=== PATIENT | female | born 1985 | race Caucasian/White ===

== ENCOUNTER 2017-10-12 03:32 | Observation (INO) | payer OTHER ==
[~2017-10-12] VITALS: Ht 165.1 cm; Wt 75.1 kg
[2017-10-12 03:34] VITALS: BP 124/81
[2017-10-12] MEDS ORDERED: SODIUM CHLORIDE FLUSH 10ML SYR IVF ONE (04:00)
[2017-10-12] MEDS ORDERED: ONDANSETRON 2MG/ML, 2ML IVPush ONE (04:00)
[2017-10-12] MEDS ORDERED: MORPHINE SULFATE 4 MG/ML, 1ML ONE ×3 (04:11→06:27)
[2017-10-12] MEDS ORDERED: ONDANSETRON 2MG/ML, 2ML ONE ×2 (04:11→07:23)
[2017-10-12 04:20] LABS: BASOPHILS # (AUTO) 0.05 x10^3/uL (0-0.1); BASOPHILS % (AUTO) 0 % (0-1); EOSINOPHILS # (AUTO) 0.23 x10^3/uL (0-0.4); EOSINOPHILS % (AUTO) 2 % (1-7); LYMPHOCYTES # (AUTO) 1.03 x10^3/uL (1-3.4); LYMPHOCYTES % (AUTO) 7 % (22-44); MD NO; MEAN CORPUSCULAR HEMOGLOBIN 24.2 pg (27.0-34.8); MEAN CORPUSCULAR VOLUME 75.8 fL (80-100); MEAN PLATELET VOLUME 9.3 fL (7.4-10.4); MONOCYTES # (AUTO) 0.77 x10^3/uL (0.2-0.8); MONOCYTES % (AUTO) 5 % (2-9); NEUTROPHILS # (AUTO) 12.46 x10^3/uL (1.8-6.8); NEUTROPHILS % (AUTO) 86 % (42-75); PLATELET COUNT 241 x10^3/uL (130-400); RED CELL DISTRIBUTION WIDTH 16.4 % (9.6-15.2)
[2017-10-12 04:30] LABS: ALANINE AMINOTRANSFERASE 15 U/L (12-78); ALBUMIN 3.6 g/dL (3.4-5.0); ANION GAP 8 mmol/L (5-15); CALCIUM 8.3 mg/dL (8.5-10.1); CHLORIDE 112 mmol/L (98-107); CREATININE 0.75 mg/dL (0.55-1.02)
[2017-10-12 04:34] LABS: ALKALINE PHOSPHATASE 49 U/L (45-117); BILIRUBIN,TOTAL 0.3 mg/dL (0.2-1.0); TOTAL PROTEIN 7.4 g/dL (6.4-8.2)
[2017-10-12] MEDS: MORPHINE SULFATE 4 MG/ML, 1ML IVPush PRN ×2 (05:00→05:22)
[2017-10-12 05:04] LABS: MICROSCOPIC INDICATED
[2017-10-12 05:05] LABS: CULTURE INDICATED? YES
[2017-10-12] MEDS ORDERED: CEFOXITIN 2,000 MG in SODIUM CHLORIDE 0.9% 50 ML IV ONE (06:00)
[2017-10-12] MEDS ORDERED: SODIUM CHLORIDE 0.9% 1,000ML IVBOLUS ONE (06:00)
[2017-10-12] MEDS ORDERED: morphine SULFATE 10 MG/ML, 1ML IVPush STA (06:32)
[2017-10-12] MEDS ORDERED: MORPHINE SULFATE 4 MG/ML, 1ML IVPush STA (06:32)
[2017-10-12] MEDS ORDERED: EPINEPHRINE 1 MG/ML, 1ML ONE (06:47)
[2017-10-12] MEDS ORDERED: BUPIVACAINE/PF 0.5% ONE (06:47)
[2017-10-12] MEDS ORDERED: FENTANYL PF 250 MCG/5ML ONE (07:09)
[2017-10-12] MEDS ORDERED: MIDAZOLAM 1 MG/ML, 2ML ONE (07:09)
[2017-10-12] MEDS ORDERED: PROPOFOL 10 MG/ML, 20ML ONE (07:10)
[2017-10-12] MEDS ORDERED: LIDOCAINE-MPF 2% ,5ML ONE (07:10)
[2017-10-12] MEDS ORDERED: CEFOTETAN 2 GM ONE (07:23)
[2017-10-12] MEDS ORDERED: ROCURONIUM 10 MG/ML,10ML ONE (07:23)
[2017-10-12] MEDS ORDERED: SUGAMMADEX 200 MG/2 ML IVPush ONE (07:23)
[2017-10-12] MEDS ORDERED: DEXAMETHASONE 4 MG/ML, 1ML ONE (07:33)
[2017-10-12] MEDS ORDERED: OXYcodone 5 MG/5 ML ORAL.SOL UDC ONE (08:09)
[2017-10-12] MEDS ORDERED: HYDROmorphone 2 MG/ML, 1ML ONE (08:10)
[2017-10-12] MEDS ORDERED: MEPERIDINE/PF 50 MG/ML ONE (08:10)
[2017-10-12] MEDS ORDERED: ACETAMINOPHEN 650 MG/20.3 ML UDC ONE (08:10)
[2017-10-12] MEDS: MEPERIDINE/PF 25MG/0.5ML IVPush PRN ×2 (08:14→08:42)
[2017-10-12] MEDS ORDERED: KETOROLAC 30 MG/1 ML ONE (08:28)
[2017-10-12] MEDS ORDERED: ACETAMINOPHEN 325 MG TABLET PO PRN (08:30)
[2017-10-12] MEDS ORDERED: OXYcodone 5 MG/5 ML ORAL.SOL UDC PO PRN (08:30)
[2017-10-12] MEDS ORDERED: ONDANSETRON 2MG/ML, 2ML IVPush PRN (08:30)
[2017-10-12] MEDS ORDERED: FENTANYL PF 100 MCG/2ML IV PRN (08:30)
[2017-10-12] MEDS ORDERED: LABETALOL 5MG/ML, 20ML IV PRN (08:30)
[2017-10-12] MEDS ORDERED: HYDROmorphone 1 MG/ML, 1ML IV PRN (08:30)
[2017-10-12] MEDS ORDERED: METOCLOPRAMIDE 5 MG/ML, 2ML IV PRN (08:30)
[2017-10-12] MEDS ORDERED: KETOROLAC 30 MG/1 ML IM PRN (08:30)
[2017-10-12] MEDS ORDERED: hydrALAzine 20 MG/ML, 1ML IV PRN (08:30)
[2017-10-12] MEDS ORDERED: KETOROLAC 30 MG/1 ML IVPush PRN (09:00)
== END 2017-10-12 11:10 | disposition home or self-care (01) ==
LOC: ED 05:52 → INTOOBSV 05:58 → EDIP 05:58
PROVIDERS: ADMIT Surgery; ATTEND Surgery
DX: K35.80 Unspecified acute appendicitis (principal); K56.41 Fecal impaction; K66.8 Other specified disorders of peritoneum
CPT/HCPCS: 36415; 44970; 74176; 80053; 81001; 83690; 84703; 85025; 87077; 87086; 87186; 88304; 96365; 96375; 96376; 99285; G0378; J0171; J0694; J1100; J1885; J2175; J2250; J2270; J2405; J2704; J3010; J3490; J7030; S0074